=== PATIENT | female | born 1975 ===

== ENCOUNTER 2019-01-12 07:29 | Day surgery (SDC) | payer OTHER | END 2019-01-12 17:24 | disposition home or self-care (01) | LOC: AMB-ENDOS 07:29 | DX: K62.4 Stenosis of anus and rectum (principal) ==

== ENCOUNTER 2020-02-29 06:52 | Day surgery (SDC) | payer OTHER | END 2020-02-29 10:44 | disposition home or self-care (01) | LOC: AMB-ENDOS 06:52 | PROVIDERS: ATTEND Surgery | DX: D12.2 Benign neoplasm of ascending colon (principal); D12.4 Benign neoplasm of descending colon; Z20.828 Contact with and (suspected) exposure to other viral communicable diseases ==

== ENCOUNTER 2021-01-23 08:38 | Day surgery (SDC) | payer OTHER | END 2021-01-23 13:40 | disposition home or self-care (01) | LOC: AMB-ENDOS 08:38 | PROVIDERS: ATTEND Surgery | DX: K62.1 Rectal polyp (principal) ==